=== PATIENT | female | born 1950 | race Caucasian/White ===

== ENCOUNTER 2018-07-22 08:51 | Day surgery (SDC) ==
[2018-07-22] MEDS ORDERED: BSS WITH EPINEPHRINE OP ONE (10:02)
[2018-07-22] MEDS ORDERED: CYCLOGYL 2% OPTH OP PRN (10:02)
[2018-07-22] MEDS ORDERED: BETADINE OPTH PREP OP PRN (10:02)
[2018-07-22] MEDS ORDERED: DEX-MOXI-KETOR OPTH INJ 1/0.5/0.4 MG/ML IO ONE (10:02)
[2018-07-22] MEDS ORDERED: BRIMONIDINE TARTRATE 0.2% OPTH SOL OP PRN (10:02)
[2018-07-22] MEDS ORDERED: ZOFRAN 4 MG/2 ML IVP ONE (10:02)
[2018-07-22] MEDS ORDERED: LIDOCAINE 1% 20 ML MDV ID STA (10:02)
[2018-07-22] MEDS ORDERED: LIDOCAINE 1%/PHENYLEPHRINE 1.5% BSS (SURGERY) INTRAOCULA ONE (10:02)
[2018-07-22] MEDS: TETRACAINE 0.5% UNIT-DOSE OP PRN ×2 (10:10→10:30)
[2018-07-22] MEDS ORDERED: SUBLIMAZE ONE (10:28)
[2018-07-22] MEDS ORDERED: VERSED ONE (10:28)
[2018-07-22] MEDS ORDERED: DIPRIVAN 20 ML VIAL IVP ONE (10:28)
[2018-07-22] MEDS ORDERED: LIDOCAINE 2%-EPI 1:100,000 20 ML MDV INJ ONE (10:30)
[2018-07-22] MEDS ORDERED: BSS IRRIGATION ONE ×2 (10:30)
[2018-07-22 15:05] VITALS: TEMP 97.6
--- NOTE | 2018-07-23 13:29 | OP ---
PREOPERATIVE DIAGNOSIS: SUSPICIOUS LESION LEFT LOWER LID MARGIN. POSTOPERATIVE DIAGNOSIS: Same DATE OF PROCEDURE: 07/22/18 PROCEDURE PERFORMED: EXCISION OF LEFT LOWER LID MARGIN LESION. SURGEON: DR. DANIEL RAMIREZ ANESTHESIA: LOCAL MAC ANESTHESIOLOGIST: CLEO BARRERA CIRCULATING NURSE: SOURAV CARTER SCRUB NURSE: NORMA ZAIDI COMPLICATIONS: NONE TECHNIQUE: The patient was taken to the operating room where she was placed in a supine position. The left periocular area was prepped and draped in a routine sterile fashion. The left lower lid was infiltrated with 2% Xylocaine with Epinephrine. The lesion was excised from the left lower lid margin using a #15 blade. Hemostasis was obtained with handheld cautery. The lesion was placed in a specimen container to be sent for pathologic evaluation. Antibiotic ointment was applied to the left lower lid and in the left inferior cul-de-sac. The patient tolerated the procedure well and discharged to the recovery area in good condition. [place]
[2018-07-23 17:13] VITALS: BP 132/66
== END 2018-07-22 11:30 | disposition home or self-care (01) ==
LOC: SURG 08:51
PROVIDERS: ATTEND Ophthalmology
DX: D23.122 Other benign neoplasm of skin of left lower eyelid, including canthus (principal)